=== PATIENT | female | born 1970 | race Caucasian/White ===

== ENCOUNTER → 2023-05-09 06:38 | Day surgery (SDC) | payer OTHER, SELFPAY | LOC: GI 06:38 | PROVIDERS: ATTENDING PHYSICIAN Internal Medicine Gastroenterology | DX: Z12.11 Encounter for screening for malignant neoplasm of colon (principal); K64.8 Other hemorrhoids; K63.5 Polyp of colon | CPT/HCPCS: 45380; 88305 ==

== ENCOUNTER → 2023-07-31 14:10 | Outpatient (REF) | payer OTHER, SELFPAY ==
[2023-07-31 15:04] LABS: % Basophils 0.8 % (0-2); % Eosinophils 0.5 % (0-6); % Immature Granulocytes 0.5 % (0-0.5); % Lymphocytes 27.6 % (20.5-51.1); % Neutrophils 62.6 % (42.2-75.2); Absolute Lymphocytes 1.1 10^3/uL (1.2-3.4); Absolute Monocytes 0.3 10^3/uL (0.1-0.6); Absolute Neutrophils 2.5 10^3/uL (1.4-6.5); Hemoglobin 13.2 g/dL (12.0-16.0); Mean Corp Hgb Conc. 35.7 g/dL (33.0-37.0); Mean Corpuscular Hgb 32.7 pg (27.0-31.0); Mean Corpuscular Volume 91.6 fL (81.0-99.0); Mean Platelet Volume 9.3 fL (7.4-10.4); Nucleated Red Blood Cells % 0 %; Platelet Count 242 10^3/uL (130-400); Red Blood Cell Count 4.04 10^6/uL (4.20-5.40); Red Cell Dist. Width 12.4 % (11.5-14.5)
[2023-07-31 15:11] LABS: Urine Albumin Negative (Neg - Trace); Urine Bilirubin Negative (Negative); Urine Character Clear (Clear); Urine Color Yellow; Urine Glucose Negative (Negative); Urine Ketone Negative (Negative); Urine Leukocyte Negative (Negative); Urine Nitrite Negative (Negative); Urine Occult Blood Negative (Negative); Urine Specific Gravity 1.005 (<1.030); Urine Urobilinogen Negative (Neg - 1+)
[2023-07-31 15:13] LABS: ALT (SGPT) 73 U/L (0-35); AST (SGOT) 79 U/L (14-36); Albumin 4.2 g/dl (3.5-5.0); Alkaline Phosphatase 63 U/L (38-126); Blood Urea Nitrogen 13 mg/dl (7-17); Calcium 9.4 mg/dl (8.4-10.2); Carbon Dioxide 27 mmol/L (22-30); Chloride 102 mmol/L (98-107); Glucose 85 mg/dl (70-99); Potassium 4.4 mmol/L (3.5-5.1); Sodium 136 mmol/L (135-145); Total Bilirubin 0.3 mg/dl (0.2-1.3); eGFR > 60.00
[2023-07-31 15:31] LABS: Procalcitonin < 0.05 ng/ml (0.0-0.25)
[2023-07-31 15:37] LABS: Erythrocyte Sed Rate 22 mm/hour (0-20)
[2023-08-02 15:08] LABS: Lyme Antibody Screen, EIA Negative (Negative)
[2023-08-02 16:08] LABS: EBV-NA IgG 13.4 U/mL (0.0-21.9); EBV-VCA IgM Antibodies <10.0 U/mL (0.0-43.9)
== END ==
LOC: REG 14:10
PROVIDERS: ATTENDING PHYSICIAN Student in an Organized Health Care Education/Training Program
DX: R50.9 Fever, unspecified (principal); R53.83 Other fatigue; R11.0 Nausea
CPT/HCPCS: 36415; 80053; 81003; 84145; 85025; 85652; 86140; 86618; 86663; 86664; 86665; 86666; 86753; 87086

== ENCOUNTER → 2023-08-01 14:31 | Outpatient (REF) | payer OTHER, SELFPAY | LOC: RAD 14:31 | PROVIDERS: ATTENDING PHYSICIAN Student in an Organized Health Care Education/Training Program | DX: R50.9 Fever, unspecified (principal) | CPT/HCPCS: 74177; Q9967 ==

== ENCOUNTER → 2023-11-26 10:48 | Outpatient (REF) | payer OTHER, SELFPAY | LOC: HWRAD 10:48 | PROVIDERS: ATTENDING PHYSICIAN Obstetrics & Gynecology; FAMILY PHYSICIAN Student in an Organized Health Care Education/Training Program | DX: N83.202 Unspecified ovarian cyst, left side (principal) | CPT/HCPCS: 76830; 76856 ==

== ENCOUNTER → 2024-01-16 12:31 | Outpatient (REF) | payer OTHER, SELFPAY | LOC: WDC 12:31 | PROVIDERS: ATTENDING PHYSICIAN Obstetrics & Gynecology; FAMILY PHYSICIAN Student in an Organized Health Care Education/Training Program | DX: Z12.31 Encounter for screening mammogram for malignant neoplasm of breast (principal) | CPT/HCPCS: 77063; 77067 ==

== ENCOUNTER → 2024-04-02 18:13 | Outpatient (REF) | payer OTHER, SELFPAY | LOC: MRI 3T 18:13 | PROVIDERS: ATTENDING PHYSICIAN Obstetrics & Gynecology; FAMILY PHYSICIAN Student in an Organized Health Care Education/Training Program | DX: N83.292 Other ovarian cyst, left side (principal) | CPT/HCPCS: 72197; A9575 ==

== ENCOUNTER 2024-05-01 06:14 | Day surgery (SDC) | payer OTHER, SELFPAY ==
[2024-04-21 11:16] LABS: % Basophils 0.7 % (0-2); % Immature Granulocytes 0.2 % (0-0.5); % Lymphocytes 33.7 % (20.5-51.1); % Monocytes 12.4 % (1.7-9.3); Absolute Eosinophils 0.2 10^3/uL (0-0.7); Absolute Lymphocytes 1.4 10^3/uL (1.2-3.4); Absolute Monocytes 0.5 10^3/uL (0.1-0.6); Hematocrit 35.4 % (37.0-47.0); Mean Corp Hgb Conc. 33.9 g/dL (33.0-37.0); Mean Corpuscular Hgb 31.5 pg (27.0-31.0); Mean Corpuscular Volume 92.9 fL (81.0-99.0); Mean Platelet Volume 9.8 fL (7.4-10.4); Nucleated Red Blood Cells % 0 %; Platelet Count 300 10^3/uL (130-400); Red Blood Cell Count 3.81 10^6/uL (4.20-5.40); Red Cell Dist. Width 12.6 % (11.5-14.5)
[2024-04-21 12:00] LABS: Beta HCG Quantitative < 2.39 mIU/ml
[2024-04-21 12:02] LABS: Blood Urea Nitrogen 22 mg/dl (7-17); Carbon Dioxide 28 mmol/L (22-30); Chloride 104 mmol/L (98-107); Glucose 84 mg/dl (70-99); Potassium 4.6 mmol/L (3.5-5.1); Sodium 138 mmol/L (135-145); eGFR > 60.00
[2024-04-21 12:50] VITALS: BMI 24.9
[2024-05-01] VITALS (12 sets, daily range): BP systolic 98–141; BP diastolic 47–84; BMI 24.9
[2024-05-01] MEDS: NEURONTIN 300 MG PO (06:34)
[2024-05-01] MEDS: HEPARIN 5000 UNITS SC (06:34)
[2024-05-01] MEDS: TYLENOL 1000 MG PO (06:34)
[2024-05-01] MEDS: NORMOSOL-R/PLASMALYTE-A 1000 IV (06:35)
--- NOTE | 2024-05-01 09:40 | W.IMMPOSTOP ---
Addendum entered and electronically signed by Gena Perez DO 05/01/24 10:05:
Error in my note:
Left ovary enlarged with endometrioma. Ovary was placed into bag intact and contents evacuated in bag at end of case. No lysis performed. Adhesions were lysed involving left ovary and posterior uterus.
Original Note:
Surgical Immed Post Op Note
-
Primary Surgeon: Gena Perez DO
[employer] Supervisor: BRICE Horowitz
Pre-op Diagnosis: Complex left adnexal mass-probable endometrioma
Post-op Diagnosis: same, abdominal and pelvic adhesions
Procedure Performed: Robotic laparoscopic BSO, lysis adhesions, fulgeration endometriosis
Anesthesia Type: general ET Dr. Foley
Specimen / Cultures: 1.right tube and ovary 2. Left tube and ovary- endometrioma
Estimated Blood Loss: 5ml
Complications: none
Operative Findings: Uterus sounded to 9cm, anterior surface is adherent to anterior abdominal wall. Omental adhesions to anterior abdominal wall
in pelvis superior to uterus and involving uterine fundus(lysed) Left ovary enlarged with endometrioma(lysed). Adhesions of left ovary and left tube to uterus posteriorly.
Filmy adhesions of sigmoid colon to peritoneal wall in vicinity of left ovary (lysed). Atrophic appearing right ovary. Right fallopian tube with adhesions to bowel (lysed).
Endometriosis noted in left round ligament- fulgerated. Adhesions of bladder noted to anterior uterus.
Counts correct times 2.
Urine output 100ml clear yellow.
Stable to recovery.
[2024-05-01] MEDS: DILAUDID 0.5 MG IV ×3 (09:54→10:23)
[2024-05-01] MEDS: ZOFRAN 4 MG IV (10:30)
[2024-05-01] MEDS: TORADOL 15 MG IV (10:32)
--- NOTE | 2024-05-01 11:08 | SUR.PHASEI ---
Pt was placed on pick for SDS and pt fell asleep. Sats reading to 60's. Pt aroused and color pink. Pt denied any complaints or Sob. Pt continued to be monitoresd and Sats remained between 96-100% on RA.
== END 2024-05-01 12:50 | disposition home or self-care (01) ==
LOC: SDS 06:14
PROVIDERS: ATTENDING PHYSICIAN Obstetrics & Gynecology; FAMILY PHYSICIAN Student in an Organized Health Care Education/Training Program
DX: N80.30 Endometriosis of pelvic peritoneum, unspecified (principal); N80.122 Deep endometriosis of left ovary; N83.291 Other ovarian cyst, right side; N73.6 Female pelvic peritoneal adhesions (postinfective)
CPT/HCPCS: 58662; 58661; 88305; 36415; 80048; 84702; 85025; 86850; 86900; 86901; 88342; 88360; 93005

== ENCOUNTER → 2025-01-22 08:03 | Outpatient (REF) | payer OTHER, SELFPAY | LOC: WDC 08:03 | PROVIDERS: ATTENDING PHYSICIAN Obstetrics & Gynecology; FAMILY PHYSICIAN Student in an Organized Health Care Education/Training Program | DX: Z12.31 Encounter for screening mammogram for malignant neoplasm of breast (principal) | CPT/HCPCS: 77063; 77067 ==